=== PATIENT | female | born 2000 | race African-American/Black ===

== ENCOUNTER 2025-03-26 08:31 | Emergency (ER) | payer MEDICAID, SELFPAY ==
[~2025-03-26] VITALS: Ht 167.6 cm; Wt 68.2 kg
[2025-03-26 08:34] VITALS: TEMP 99
[2025-03-26] MEDS ORDERED: IBUP200T46 PO (09:05)
[2025-03-26 10:00] VITALS: BP 106/67
[2025-03-26 10:01] VITALS: O2SAT 100
== END 2025-03-26 10:28 | disposition home or self-care (01) ==
LOC: M ED 08:31
DX: S83.92XA Sprain of unspecified site of left knee, initial encounter (principal); X58.XXXA Exposure to other specified factors, initial encounter; Y92.9 Unspecified place or not applicable; Y93.9 Activity, unspecified; Y99.0 Civilian activity done for income or pay